=== PATIENT | female | born 1990 | race Caucasian/White ===

== ENCOUNTER 2019-12-16 08:00 | Inpatient (IN) | payer BC ==
[2019-12-16] MEDS ORDERED: Sodium Chloride 0.9% 10 ML Syringe FLUSH PRN (19:29)
[2019-12-16] MEDS ORDERED: Nalbuphine 10 MG/ML Syringe IVPUSH PRN (19:29)
[2019-12-16] MEDS ORDERED: Ondansetron 4 MG/2 ML SDV IVPUSH PRN (19:29)
[2019-12-16] MEDS ORDERED: Calcium Carbonate 500 MG Tab.Chew PO PRN (19:29)
[2019-12-16] MEDS ORDERED: Acetaminophen 325 MG Tab PO PRN (19:29)
[2019-12-16] MEDS ORDERED: Oxytocin/Lactated Ringers 10 UNIT/1,000 ML BAG IV SCH ×2 (19:30)
[2019-12-16] MEDS ORDERED: Misoprostol 25 MCG (1/4 of 100 MCG) Tab VAG ONE (19:42)
--- NOTE | 2019-12-16 20:02 | PCM.LDHP ---
<Violeta Lvoing R - Last Filed: 12/16/19 20:17> L&D History of Present Illness - General Date of Service: 12/16/19 Admit Problem/Dx: Patient Status Order with Admit Dx/Problem 12/16/19 19:29 Patient Status [ADT] Routine Admission Diagnosis/Problem Admission Diagnosis/Problem Source of Information: Patient History Limitations: Reports: No Limitations - History of Present Illness Introduction:: Urvashi is a 28-year-old white female at 40-2/7 weeks' gestational age with an NANCY of 12/14/2019 who is admitted to labor and delivery for induction of labor on the evening of 12/16/2019. Upon examination, her cervix is closed, 60% effaced, posterior, and soft. Baby is in vertex position. She will receive Cytotec for induction per protocol. heart rate tracings show moderate variability with good accelerations and no decelerations. She is not currently experiencing any contractions. 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 Menarche began at age 12. Cycles have been regular prior to conception, lasting 28 days on average. She was not using control at the time of conception. LMP was 03/03/2019. supported by early ultrasound at 10 -3/7 weeks' gestational age on 05/21/2019 course: Patient began care at 10-3/7 weeks' gestational age. Patient's weight gain during was 140.0 pounds to 172.2 pounds for a total gain of 32.2 pounds. Her fundal height has been consistent with gestational age throughout the course of . Early ultrasound showed possible cleft lip, but most recent ultrasound performed on 08/25/2019 showed no cleft lip. Baby was measuring in the 45th percentile for growth. No risks factors for were identified. Laboratory results: Blood type is O negative with negative antibody screen. Initial labs showed a hemoglobin of 15.7 g/dL and platelets of 162,000. RPR was nonreactive. Rubella immune. Gonorrhea and chlamydia were negative. HIV and hepatitis B surface antigen were negative. Her urine culture was negative. Her second trimester labs revealed a hemoglobin of 14.2 g/dL and platelets of 170,000. Her group B strep screen was negative. Past medical history: none Past surgical history: none Allergies: No known drug allergies Current medications: 1. vitamin PO daily Social history: Urvashi is . Her is Eusebio Ash. They live in [place], [place]. 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 She has some college education. No history of tobacco, alcohol, or illicit substance use during . Family history: Mother is alive and well. Father is alive and has a history of hepatitis C. She has 1 sister and 1 brother who are both in good health. Her maternal grandmother is alive and has a history of tobacco use with some residual lung issues. Her maternal grandfather is alive and well. Her paternal grandmother in a car accident. Her paternal grandfather in a jacqui accident. No health conditions known about them prior to their deaths. No family history of bleeding or clotting disorders, anesthesia-related problems, or breast or ovarian cancer. No history of -related problems. - Related Data Allergies/Adverse Reactions: Allergies Allergy/AdvReac Type Severity Reaction Status Date / Time No Known Allergies Allergy Verified 12/16/19 19:29 Past Medical History - Past Health History Medical/Surgical History: Denies Medical/Surgical History H&P Review of Systems - Review of Systems: Review Of Systems: Comprehensive ROS is negative, except as noted in HPI. L&D Exam - Vital Signs Weight: 78.154 kg - OB Specific Movement: Active Heart Tones: Present Heart Rate (FHR) Variability: Moderate (6-25 bmp) Presentation: Vertex - Silva Score Silva Score Cervix Position: Posterior Silva Score Consistency: Soft Silva Score Effacement: 51-70% Silva Score Dilation: Closed Silva Score Infant's Station: -3 Silva Score Total: 4 - Exam General: Alert, Oriented HEENT: Conjunctiva Clear, EOMI, Mucosa Moist & [place], Posterior Pharynx Clear Neck: Supple, Trachea Midline Lungs: Clear to Auscultation, Normal Respiratory Effort Cardiovascular: Regular Rate, Regular Rhythm GI/Abdominal Exam: Normal Bowel Sounds, Other (normal gravid abdomen) Back Exam: Normal Inspection Extremities: Normal Inspection, No Pedal Edema, Normal Capillary Refill Skin: Warm, Dry, Intact Orders Last 24hrs: Active Orders 24 hr Category Date Time Status Patient Status [ADT] Routine ADT 12/16/19 19:29 Active Activity as Tolerated [RC] PFP Care 12/16/19 19:29 Active Communication Order [RC] ASDIRECTED Care 12/16/19 19:29 Active Heart Tones [RC] ASDIRECTED Care 12/16/19 19:30 Active Non Stress Test [RC] PER UNIT ROUTINE Care 12/16/19 19:29 Active Notify Provider [RC] PFP Care 12/16/19 19:29 Active Notify Provider [RC] PRN Care 12/16/19 19:29 Active Peripheral IV Care [RC] . DIRECTED Care 12/16/19 19:30 Active Vital Signs [RC] PER UNIT ROUTINE Care 12/16/19 19:29 Active Regular Diet [DIET] Diet 12/17/19 Breakfast Active CBC WITH AUTO DIFF [HEME] Stat Lab 12/16/19 19:29 Ordered CORONAVIRUS COVID-19 PCR PHL Stat Lab 12/16/19 19:34 Ordered RAPID PLASMA REAGIN,RPR [CHEM] Routine Lab 12/16/19 19:29 Ordered TYPE AND SCREEN [BBK] Stat Lab 12/16/19 19:29 Ordered Acetaminophen [Tylenol] Med 12/16/19 19:29 Active 650 mg PO Q4H PRN Calcium Carbonate [Tums] Med 12/16/19 19:29 Active 1,000 mg PO Q2H PRN Lactated Ringers [Ringers, Lactated] 1,000 ml Med 12/16/19 19:30 Active IV ASDIRECTED Nalbuphine [Nubain] Med 12/16/19 19:29 Active 10 mg IVPUSH Q2H PRN Ondansetron [Zofran] Med 12/16/19 19:29 Active 4 mg IVPUSH Q4H PRN Oxytocin/Lactated Ringers [Pitocin in LR 10 Units/1,000 Med 12/16/19 19:30 Active ML] 10 unit in 1,000 ml IV .CONTINUOUS Oxytocin/Lactated Ringers [Pitocin in LR 10 Units/1,000 Med 12/16/19 19:30 Active ML] 10 unit in 1,000 ml IV TITRATE Sodium Chloride 0.9% [Saline Flush] Med 12/16/19 19:29 Active 10 ml FLUSH ASDIRECTED PRN Electronic Heart Tones Ext w TOCO [WOMSER] Oth 12/16/19 19:29 Ordered Routine Electronic Heart Tones Internal [WOMSER] Per Unit Oth 12/16/19 19:29 Ordered Routine Peripheral IV Insertion Adult [OM.PC] Routine Oth 12/16/19 19:29 Ordered Resuscitation Status Routine Resus Stat 12/16/19 19:29 Ordered Medication Orders Acetaminophen (Tylenol) 650 mg PO Q4H PRN PRN Reason: Pain (Mild 1-3) and fever Calcium Carbonate/Glycine (Tums) 1,000 mg PO Q2H PRN PRN Reason: Indigestion Oxytocin/Lactated Ringer's (Pitocin In Lr 10 Units/1,000 Ml) 10 unit in 1,000 mls @ 500 mls/hr IV .CONTINUOUS JUAN J Oxytocin/Lactated Ringer's (Pitocin In Lr 10 Units/1,000 Ml) 10 unit in 1,000 mls @ 12 mls/hr IV TITRATE JUAN J; Protocol Lactated Ringer's (Ringers, Lactated) 1,000 mls @ 100 mls/hr IV ASDIRECTED JUAN J Nalbuphine HCl (Nubain) 10 mg IVPUSH Q2H PRN PRN Reason: Pain Ondansetron HCl (Zofran) 4 mg IVPUSH Q4H PRN PRN Reason: Nausea/Vomiting Sodium Chloride (Saline Flush) 10 ml FLUSH ASDIRECTED PRN PRN Reason: Keep Vein Open Assessment/Plan Comment:: Assessment: 1. 28-year-old female at 40-2/7 weeks gestational age with an NANCY of 12/14/2019 admitted for induction of labor. 2. No risk factors identified for this . 3. GBS negative. 4. Rubella immune. 5. RPR nonreactive. 6. Patient is considering an epidural as labor progresses. Plan: 1. Induction with Cytotec. 2. Regular diet. 3. Epidural if patient so chooses. 4. Routine labor care. 5. RPR and CBC upon admission. 6. Anticipate normal spontaneous vaginal delivery. <Mauro Briones - Last Filed: 12/17/19 06:00> L&D History of Present Illness - General Admit Problem/Dx: Patient Status Order with Admit Dx/Problem 12/16/19 19:29 Patient Status [ADT] Routine Admission Diagnosis/Problem Admission Diagnosis/Problem H&P Review of Systems - Review of Systems: Review Of Systems: See Below L&D Exam - Exam Exam: See Below - Vital Signs Vital Signs: Last Vital Signs Temp 36.7 C 12/16/19 19:29 Pulse 67 12/16/19 19:29 Resp 16 12/16/19 19:29 BP 126/75 12/16/19 19:29 Pulse Ox 100 12/16/19 19:29 - Patient Data Lab Results Last 24 hrs: Laboratory Results - last 24 hr 12/16/19 12/16/19 12/16/19 Range/Units 20:02 20:03 20:03 WBC 9.75 (3.98-10.04) K/mm3 RBC 4.42 (3.98-5.22) M/mm3 Hgb 13.6 (11.2-15.7) gm/dl Hct 40.2 (34.1-44.9) % MCV 91.0 (79.4-94.8) fl MCH 30.8 (25.6-32.2) pg MCHC 33.8 (32.2-35.5) g/dl RDW Std Deviation 43.3 (36.4-46.3) fL Plt Count 232 (182-369) K/mm3 MPV 11.1 (9.4-12.3) fl Neut % (Auto) 70.2 (34.0-71.1) % Lymph % (Auto) 19.4 (19.3-51.7) % [place] % (Auto) 9.2 (4.7-12.5) % Eos % (Auto) 0.8 (0.7-5.8) Baso % (Auto) 0.3 (0.1-1.2) % Neut # (Auto) 6.84 H (1.56-6.13) K/mm3 Lymph # (Auto) 1.89 (1.18-3.74) K/mm3 [place] # (Auto) 0.90 H (0.24-0.36) K/mm3 Eos # (Auto) 0.08 (0.04-0.36) K/mm3 Baso # (Auto) 0.03 (0.01-0.08) K/mm3 COVID-19 (ELIGIO) Negative (NEGATIVE) Blood Type O NEGATIVE Gel Antibody Screen Negative Result Diagrams: 12/16/19 20:03 Problem List Initiated/Reviewed/Updated: Yes Orders Last 24hrs: Active Orders 24 hr Category Date Time Status Patient Status [ADT] Routine ADT 12/16/19 19:29 Active Activity as Tolerated [RC] PFP Care 12/16/19 19:29 Active Communication Order [RC] ASDIRECTED Care 12/16/19 19:29 Active Heart Tones [RC] ASDIRECTED Care 12/16/19 19:30 Active Notify Provider [RC] PFP Care 12/16/19 19:29 Active Notify Provider [RC] PRN Care 12/16/19 19:29 Active Peripheral IV Care [RC] . DIRECTED Care 12/16/19 19:30 Active Vital Signs [RC] PER UNIT ROUTINE Care 12/16/19 19:29 Active Regular Diet [DIET] Diet 12/17/19 Breakfast Active RAPID PLASMA REAGIN,RPR [CHEM] Routine Lab 12/16/19 19:29 Ordered Acetaminophen [Tylenol] Med 12/16/19 19:29 Active 650 mg PO Q4H PRN Calcium Carbonate [Tums] Med 12/16/19 19:29 Active 1,000 mg PO Q2H PRN Lactated Ringers [Ringers, Lactated] 1,000 ml Med 12/16/19 19:30 Active IV ASDIRECTED Nalbuphine [Nubain] Med 12/16/19 19:29 Active 10 mg IVPUSH Q2H PRN Ondansetron [Zofran] Med 12/16/19 19:29 Active 4 mg IVPUSH Q4H PRN Oxytocin/Lactated Ringers [Pitocin in LR 10 Units/1,000 Med 12/16/19 19:30 Active ML] 10 unit in 1,000 ml IV .CONTINUOUS Oxytocin/Lactated Ringers [Pitocin in LR 10 Units/1,000 Med 12/16/19 19:30 Active ML] 10 unit in 1,000 ml IV TITRATE Sodium Chloride 0.9% [Saline Flush] Med 12/16/19 19:29 Active 10 ml FLUSH ASDIRECTED PRN miSOPROStoL [Cytotec] Med 12/17/19 00:00 Active 50 mcg VAG Q4HR PRN Electronic Heart Tones Ext w TOCO [WOMSER] Oth 12/16/19 19:29 Ordered Routine Electronic Heart Tones Internal [WOMSER] Per Unit Oth 12/16/19 19:29 Ordered Routine Peripheral IV Insertion Adult [OM.PC] Routine Oth 12/16/19 19:29 Ordered Resuscitation Status Routine Resus Stat 12/16/19 19:29 Ordered Medication Orders Acetaminophen (Tylenol) 650 mg PO Q4H PRN PRN Reason: Pain (Mild 1-3) and fever Calcium Carbonate/Glycine (Tums) 1,000 mg PO Q2H PRN PRN Reason: Indigestion Oxytocin/Lactated Ringer's (Pitocin In Lr 10 Units/1,000 Ml) 10 unit in 1,000 mls @ 500 mls/hr IV .CONTINUOUS JUAN J Oxytocin/Lactated Ringer's (Pitocin In Lr 10 Units/1,000 Ml) 10 unit in 1,000 mls @ 12 mls/hr IV TITRATE JUAN J; Protocol Lactated Ringer's (Ringers, Lactated) 1,000 mls @ 100 mls/hr IV ASDIRECTED JUAN J Misoprostol (Cytotec) 50 mcg VAG Q4HR PRN PRN Reason: Other Last Admin: 12/17/19 04:10 Dose: 50 mcg Documented by: Admin: 12/17/19 00:08 Dose: 50 mcg Documented by: DEBORA Nalbuphine HCl (Nubain) 10 mg IVPUSH Q2H PRN PRN Reason: Pain Ondansetron HCl (Zofran) 4 mg IVPUSH Q4H PRN PRN Reason: Nausea/Vomiting Sodium Chloride (Saline Flush) 10 ml FLUSH ASDIRECTED PRN PRN Reason: Keep Vein Open
[2019-12-17] MEDS: Misoprostol 25 MCG (1/4 of 100 MCG) Tab VAG PRN ×2 (00:08→04:10)
[2019-12-17] MEDS: Lactated Ringers 1,000 ML IV SCH ×5 (07:32→22:55)
[2019-12-17] MEDS ORDERED: Ondansetron 4 MG/2 ML SDV IVPUSH PRN (08:37)
[2019-12-17] MEDS ORDERED: fentaNYL 100 MCG/2 ML SDV EPIDUR PRN (08:37)
[2019-12-17] MEDS ORDERED: ePHEDrine 50 MG/ML SDV IVPUSH PRN (08:37)
--- NOTE | 2019-12-17 08:40 | PCM.PREANE ---
Preanesthetic Assessment - Anesthesia/Transfusion/Family Hx Anesthesia History: Prior Anesthesia Without Reaction Family History of Anesthesia Reaction: No Transfusion History: No Prior Transfusion(s) Intubation History: Unknown - Review of Systems General: No Symptoms Pulmonary: No Symptoms Cardiovascular: No Symptoms Gastrointestinal: No Symptoms (GERD) Neurological: No Symptoms Other: Reports: None, Easy Bruising - Physical Assessment NPO Status Date: 12/17/19 NPO Status Time: 08:50 Vital Signs: Last Vital Signs Temp 36.7 C 12/16/19 19:29 Pulse 67 12/16/19 19:29 Resp 16 12/16/19 19:29 BP 126/75 12/16/19 19:29 Pulse Ox 100 12/16/19 19:29 Height: 1.63 m Weight: 78.154 kg ASA Class: 2 Mental Status: Alert & Oriented x3 Airway Class: Mallampati = 2 Dentition: Reports: Normal Dentition, Caries Thyro-Mental Finger Breadths: 3 Mouth Opening Finger Breadths: 3 ROM/Head Extension: Full Lungs: Clear to Auscultation, Normal Respiratory Effort Cardiovascular: Regular Rate, Regular Rhythm, No Murmurs - Lab Values: Laboratory Last Values WBC 9.75 K/mm3 (3.98-10.04) 12/16/19 20:03 RBC 4.42 M/mm3 (3.98-5.22) 12/16/19 20:03 Hgb 13.6 gm/dl (11.2-15.7) 12/16/19 20:03 Hct 40.2 % (34.1-44.9) 12/16/19 20:03 MCV 91.0 fl (79.4-94.8) 12/16/19 20:03 MCH 30.8 pg (25.6-32.2) 12/16/19 20:03 MCHC 33.8 g/dl (32.2-35.5) 12/16/19 20:03 RDW Std Deviation 43.3 fL (36.4-46.3) 12/16/19 20:03 Plt Count 232 K/mm3 (182-369) 12/16/19 20:03 MPV 11.1 fl (9.4-12.3) 12/16/19 20:03 Neut % (Auto) 70.2 % (34.0-71.1) 12/16/19 20:03 Lymph % (Auto) 19.4 % (19.3-51.7) 12/16/19 20:03 [place] % (Auto) 9.2 % (4.7-12.5) 12/16/19 20:03 Eos % (Auto) 0.8 (0.7-5.8) 12/16/19 20:03 Baso % (Auto) 0.3 % (0.1-1.2) 12/16/19 20:03 Neut # (Auto) 6.84 K/mm3 (1.56-6.13) H 12/16/19 20:03 Lymph # (Auto) 1.89 K/mm3 (1.18-3.74) 12/16/19 20:03 [place] # (Auto) 0.90 K/mm3 (0.24-0.36) H 12/16/19 20:03 Eos # (Auto) 0.08 K/mm3 (0.04-0.36) 12/16/19 20:03 Baso # (Auto) 0.03 K/mm3 (0.01-0.08) 12/16/19 20:03 COVID-19 (ELIGIO) Negative (NEGATIVE) 12/16/19 20:02 Blood Type O NEGATIVE 12/16/19 20:03 Gel Antibody Screen Negative 12/16/19 20:03 Above labs reviewed and noted and within acceptable ranges to proceed with epidural if desired. 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 USE Smoking Status *Q: Never Smoker Second Hand Smoke Exposure: No Recreational Drug Use History: No - CURRENT (IN HOUSE) MEDS Current Meds: Current Medications Acetaminophen (Tylenol) 650 mg PO Q4H PRN PRN Reason: Pain (Mild 1-3) and fever Calcium Carbonate/Glycine (Tums) 1,000 mg PO Q2H PRN PRN Reason: Indigestion Ephedrine Sulfate (Ephedrine Sulfate) 5 mg IVPUSH ASDIRECTED PRN PRN Reason: Hypotension Fentanyl (Sublimaze) 100 mcg EPIDUR Q3H PRN PRN Reason: Pain Fentanyl/Bupivacaine HCl (Fentanyl/Bupivacaine/Ns 2 Mcg-0.125% 100 Ml) 100 ml EPIDUR ASDIRECTED JUAN J Oxytocin/Lactated Ringer's (Pitocin In Lr 10 Units/1,000 Ml) 10 unit in 1,000 mls @ 500 mls/hr IV .CONTINUOUS JUAN J Oxytocin/Lactated Ringer's (Pitocin In Lr 10 Units/1,000 Ml) 10 unit in 1,000 mls @ 12 mls/hr IV TITRATE JUAN J; Protocol Last Titration: 12/17/19 08:15 Dose: 6 munits/min, 36 mls/hr Documented by: Lactated Ringer's (Ringers, Lactated) 1,000 mls @ 100 mls/hr IV ASDIRECTED JUAN J Last Admin: 12/17/19 07:32 Dose: 100 mls/hr Documented by: Phenylephrine HCl 1 mg/ Sodium (Chloride) 10.1 mls @ 1 mls/sec IV TITRATE JUAN J; Protocol Misoprostol (Cytotec) 50 mcg VAG Q4HR PRN PRN Reason: Other Last Admin: 12/17/19 04:10 Dose: 50 mcg Documented by: Nalbuphine HCl (Nubain) 10 mg IVPUSH Q2H PRN PRN Reason: Pain Ondansetron HCl (Zofran) 4 mg IVPUSH Q4H PRN PRN Reason: Nausea/Vomiting Ondansetron HCl (Zofran) 4 mg IVPUSH ONETIME PRN PRN Reason: Nausea/Vomiting Sodium Chloride (Saline Flush) 10 ml FLUSH ASDIRECTED PRN PRN Reason: Keep Vein Open Discontinued Medications Misoprostol (Cytotec) 25 mcg VAG ONETIME ONE Stop: 12/16/19 19:43 Last Admin: 12/16/19 19:53 Dose: 25 mcg Documented by:
[2019-12-17] MEDS ORDERED: Phenylephrine 1 MG in Sodium Chloride 0.9% 10 ML IV SCH (08:45)
[2019-12-17] MEDS ORDERED: Bupivacaine/fentaNYL/NS 100 ML Bag EPIDUR SCH (08:45)
[2019-12-17] MEDS: Oxytocin/Lactated Ringers 20 UNIT/1,000 ML BAG IV SCH (12:58)
--- NOTE | 2019-12-17 22:03 | PCM.SN.2 ---
- Free Text/Narrative Note: Progress note: Urvashi when Cytotec cervical ripening throughout the night starting on the evening of 03/17/2020 through the a.m. on 12/17/2019. She had 3 doses of Cytotec. Attempt was made to place a balloon catheter to facilitate mechanical cervical dilation. This was unsuccessful at approximately 0700 hrs. Patient started on Pitocin and with Pitocin induction she did achieve a 1 cm cervical dilation which wasn't enough to allow for Oh bulb placement. 30 mL of fluid was placed in the bulb. She was continued on Pitocin induction and at approximately 2000 hrs. she dilated to 4 cm and the Oh bulb fell into the vagina. At that time artificial rupture member is undertaken with resultant clear amniotic fluid. She underwent a laboring epidural with good results. Early in the course of labor spell presentation was confirmed with ultrasound at bedside. heart tones have been generally reactive with good variability and accelerations. For short period time heart rate was around 110 but no significant decelerations were noted. The change in baseline occurred just shortly after patient received Nubain analgesia. Intrauterine pressure catheter was placed at approximately 2200 hrs. on 12/17/2019. Contractions appear to be adequate. heart tones were reassuring. Assessment: 1. 40-3/7 week intrauterine , induction of labor. Initial evaluation cervix at the time of cervical ripening was closed, -3 station, cephalic presentation. No major slow progress with good labor pattern. heart tones reassuring. Plan: 1. Epidural analgesia she'll outpatient rest. 2. Continue Pitocin at a rate adequate to produce good labor pattern. 3. Monitor heart tones closely.
[2019-12-17] MEDS ORDERED: diphenhydrAMINE 50 MG/ML SDV IVPUSH PRN (22:49)
[2019-12-18] MEDS: Oxytocin/Lactated Ringers 20 UNIT/1,000 ML BAG IV SCH (02:20)
--- NOTE | 2019-12-18 06:23 | PCM.SN.2 ---
- Free Text/Narrative Note: Urvashi has continued on pitocin over night with IUPC evaluated ctx that are adequate in frequency, length and intensity. FHTs generally have been reassuring. Her cx this AM is 4/90/-3/mid/soft with baby in a cephalic presentation. Patient has been felt to have a borderline size pelvis as is documented in the PN chart. I have recommended that we proceed with a primary CS. The risks, benefits, alternatives of care and follow up are discussed with the patient and her . They appear to understand and wish to proceed. Consent is signed.
[2019-12-18] MEDS ORDERED: Metoclopramide 10 MG/2 ML SDV IVPUSH ONE (06:25)
[2019-12-18] MEDS ORDERED: Bupivacaine 0.5% 10 ML SDV ONE (06:25)
[2019-12-18] MEDS ORDERED: Citric Acid/Sodium Citrate Solution 30 ML Cup PO ONE (06:25)
[2019-12-18] MEDS ORDERED: Bupivacaine 0.5% 30 ML SDV ONE (06:26)
[2019-12-18] MEDS ORDERED: Citric Acid/Sodium Citrate Solution 30 ML Cup ONE (06:28)
[2019-12-18] MEDS ORDERED: Metoclopramide 10 MG/2 ML SDV ONE (06:28)
[2019-12-18] MEDS: Lactated Ringers 1,000 ML IV SCH (06:35)
[2019-12-18] MEDS ORDERED: Azithromycin 500 MG in Sodium Chloride 0.9% 250 ML IV ONE (07:27)
[2019-12-18] MEDS ORDERED: ceFAZolin 1 GM Vial ONE (07:47)
[2019-12-18] MEDS ORDERED: Lactated Ringers 1,000 ML ONE (07:51)
[2019-12-18] MEDS ORDERED: Oxytocin 10 Units/1 ML SDV ONE (07:58)
[2019-12-18] MEDS ORDERED: Morphine PF 1 MG/ML Amp ONE (07:59)
[2019-12-18] MEDS ORDERED: Meperidine 50 MG/ML Vial ONE (08:09)
[2019-12-18] MEDS ORDERED: Ketorolac 30 MG/ML SDV ONE (08:25)
--- NOTE | 2019-12-18 08:49 | PCM.OPNOTE ---
- General Post-Op/Procedure Note Date of Surgery/Procedure: 12/18/19 Operative Procedure(s): Primary lower uterine segment transverse section through Pfannenstiel skin incision Findings: Uterus, tubes and ovaries consistent with term . Baby in vertex presentation. Amniotic fluid was clear. Cervix was dilated to approximately 3-4 cm. There was a tight nuchal cord 1 reduced over the baby's head at the time of delivery. Pre Op Diagnosis: 1. 40-4/7 week intrauterine . 2. Failure to progress secondary to cephalopelvic disproportion Post-Op Diagnosis: Same with delivery of a viable, 3430 g (7 lbs. 9 oz.) (male infant with Apgars of 9 and 9 and a length of 19.5 inches delivered at 0800 hrs. on 12/18/2019 by primary section done for failure to progress secondary to cephalopelvic disproportion. Anesthesia Technique: Epidural Other Anesthesia Type: Marcaine 0.5%20 mLlocal Primary Surgeon: Mauro Briones Secondary Surgeon: Shoshana Smith Anesthesia Provider: Leo Hancock Order Processing Manager: Violeta Loving Reason Order Processing Manager Was Necessary: Retraction, assistance, patient safety, quality of care. Fluid Replacement, Intraop: 2,000 Output, Urine Amount: 100 EBL in mLs: 500 Drain/Tube Comments:: Indwelling bladder catheter Complications: None Condition: Good Free Text/Narrative:: Surgery duration: 35 minutes\ Surgery duration: Procedure: The patient is appropriately consented. Patient was transferred to the room and placed in a sitting position. Spinal anesthesia was administered. After confirmation of adequate anesthesia patient was placed in a supine position with a wedge under her right side to facilitate left lateral positioning. The patient was prepped and draped in usual fashion after Oh catheter was already placed . The anesthetic was checked and found to be adequate. 20 mL of Marcaine 0.5% was injected locally in the Pfannenstiel incision site. The Pfannenstiel skin incision was then made and carried down through skin, subcutaneous and fascial layers. The fascia was then undermined superiorly and inferiorly to allow for adequate operating room. The recti muscles midline and preperitoneal fat was bluntly dissected. Peritoneal cavity was entered longitudinally. The vesicouterine peritoneum was then incised transversely and bladder flap was developed. Myometrium was incised transversely to the level of the amniotic sac. This incision was extended bilaterally in a blunt fashion. The amniotic sac was then ruptured resulting in clear amniotic fluid. A hand is placed in the low uterine segment and the baby's head was brought forth through the incision. The baby was completely delivered using fundal pressure in a routine fashion. The nose and mouth were bulb suctioned. Baby's cord was clamped x2 cut and baby was handed off to attending die maker stamping Dr Cheema. Placenta was expressed after cord blood was obtained. Uterus was then exteriorized to allow for easier closure. The cervix was assessed and found to be dilated adequately to allow egress of blood. The uterus was closed in 2 layers. The first layer a running locked suture of 0 Monocryl, the second layer a running locked vertical mattress suture of 0 Monocryl. Hemostasis confirmed at this time. Sponge instrument needle counts are correct. The uterus was returned to the abdominal cavity and lateral gutters were cleared of blood. Once again sponge needle counts are correct. The anterior abdominal wall was closed with a #1 PDS suture from angle to angle. The subcutaneous area was found to be free of any bleeders. 3 interrupted sutures of 3-0 Monocryl were used to reapproximate the subcutaneous layer.Skin was closed with a running subcuticular stitch of 3-0 Monocryl in a vertical mattress suture fashion using a Vinicio needle. Prineo mesh/glue was then applied to further approximate the incision. It should be noted that patient received 2 g of Ancef and 500 mg of azithromycin preoperatively for infection prophylaxis and had Pitocin infused after delivery of the placenta to facilitate uterine contraction. She also had sequential compression stockings in place for DVT prophylaxis. Patient was discharged from the operating room in satisfactory condition.
[2019-12-18] MEDS ORDERED: diphenhydrAMINE 50 MG/ML SDV IVPUSH PRN ×2 (08:53→10:17)
[2019-12-18] MEDS ORDERED: fentaNYL 100 MCG/2 ML SDV IVPUSH PRN (08:53)
[2019-12-18] MEDS ORDERED: Ondansetron 4 MG/2 ML SDV IVPUSH PRN (08:53)
--- NOTE | 2019-12-18 08:53 | PCM.POSTAN ---
POST ANESTHESIA ASSESSMENT - MENTAL STATUS Mental Status: Alert, Oriented - VITAL SIGNS Vital Signs: Last Vital Signs Temp 98.9 F 12/18/19 08:50 Pulse 74 12/18/19 08:50 Resp 23 H 12/18/19 08:50 BP 110/58 L 12/18/19 08:50 Pulse Ox 97 12/18/19 08:50 - RESPIRATORY Respiratory Status: Respiratory Rate WNL, Airway Patent, O2 Saturation Stable - CARDIOVASCULAR CV Status: Pulse Rate WNL, Blood Pressure Stable - GASTROINTESTINAL GI Status: No Symptoms - PAIN Pain Score: 0 (post epidural) - POST OP HYDRATION Hydration Status: Adequate & Stable
[2019-12-18] MEDS ORDERED: Acetaminophen/oxyCODONE 325-5 MG Tab PO PRN ×2 (10:17)
[2019-12-18] MEDS ORDERED: Ondansetron 4 MG/2 ML SDV IV PRN (10:17)
[2019-12-18] MEDS ORDERED: ePHEDrine 50 MG/ML SDV IVPUSH PRN (10:17)
[2019-12-18] MEDS ORDERED: Dextrose 5%-Lactated Ringers 1,000 ML IV SCH (10:17)
[2019-12-18] MEDS ORDERED: Naloxone 0.4 MG/ML SDV IVPUSH PRN (10:17)
--- NOTE | 2019-12-18 10:57 | PCM48HPAN ---
Post Anesthesia Note - EVALUATION WITHIN 48HRS OF ANESTHETIC Vital Signs in Normal Range: Yes Patient Participated in Evaluation: Yes Respiratory Function Stable: Yes Airway Patent: Yes Cardiovascular Function Stable: Yes Hydration Status Stable: Yes Pain Control Satisfactory: Yes Nausea and Vomiting Control Satisfactory: Yes Mental Status Recovered: Yes Vital Signs: Last Vital Signs Temp 99.2 F 12/18/19 09:30 Pulse 74 12/18/19 09:30 Resp 22 H 12/18/19 09:30 BP 112/67 12/18/19 09:30 Pulse Ox 97 12/18/19 09:30 - COMMENTS/OBSERVATIONS Free Text/Narrative:: IN bed nursing. NO complaints
[2019-12-18] MEDS: Docusate Sodium 100 MG Cap PO PRN (20:36)
[2019-12-18] MEDS: Ibuprofen 800 MG Tab PO SCH (20:37)
[2019-12-18] MEDS: Simethicone 80 MG Tab.Chew PO SCH (22:00)
[2019-12-19] MEDS ORDERED: Bupivacaine 0.25% 10 ML SDV ONE
[2019-12-19] MEDS ORDERED: Lidocaine 2% 20 ML MDV ONE
--- NOTE | 2019-12-19 00:06 | PCM.PNPP ---
- General Info Date of Service: 12/19/19 Functional Status: Reports: Pain Controlled, Tolerating Diet, Ambulating, Urinating - Review of Systems General: Reports: No Symptoms Pulmonary: Reports: No Symptoms Cardiovascular: Reports: No Symptoms Gastrointestinal: Reports: Abdominal Pain (managed well) Genitourinary: Reports: No Symptoms Musculoskeletal: Reports: No Symptoms Neurological: Reports: No Symptoms - General Info Date of Service: 12/19/19 - Patient Data Vital Signs - Most Recent: Last Vital Signs Temp 37.1 C 12/18/19 16:00 Pulse 84 12/18/19 16:38 Resp 16 12/18/19 18:00 BP 130/76 12/18/19 16:38 Pulse Ox 97 12/18/19 18:00 Weight - Most Recent: 78.154 kg I&O - Last 24 Hours: Intake & Output 12/18/19 12/18/19 12/19/19 14:59 22:59 06:59 Intake Total 2200 2000 Output Total 350 950 Balance 1850 1050 Med Orders - Current: Current Medications Diphenhydramine HCl (Benadryl) 25 mg IVPUSH Q6H PRN PRN Reason: Pruritis Diphenhydramine HCl (Benadryl) 25 mg IVPUSH Q6H PRN PRN Reason: Itching or Nausea Docusate Sodium (Colace) 100 mg PO Q12H PRN PRN Reason: Constipation Last Admin: 12/18/19 20:36 Dose: 100 mg Documented by: Ephedrine Sulfate (Ephedrine Sulfate) 5 mg IVPUSH SEECOMMENT PRN PRN Reason: Other Fentanyl (Sublimaze) 50 mcg IVPUSH Q5M PRN PRN Reason: Pain Ibuprofen (Motrin) 800 mg PO Q8H JUAN J Last Admin: 12/18/19 20:37 Dose: 800 mg Documented by: Naloxone HCl (Narcan) 0.1 mg IVPUSH SEECOMMENT PRN PRN Reason: Respiratory Depression Ondansetron HCl (Zofran) 4 mg IVPUSH ONETIME PRN PRN Reason: Nausea/Vomiting Ondansetron HCl (Zofran) 4 mg IV Q4H PRN PRN Reason: Nausea/Vomiting Oxycodone/Acetaminophen (Percocet 325-5 Mg) 1 tab PO Q4H PRN PRN Reason: Pain (moderate 4-6) Oxycodone/Acetaminophen (Percocet 325-5 Mg) 2 tab PO Q4H PRN PRN Reason: Pain (severe 7-10) Prenat Multivit/[place]/Iron/Folic Ac ( Plus Iron) 1 each PO DAILY [facility] Simethicone (Simethicone) 80 mg PO 0900,1300,1800,2200 JUAN J Discontinued Medications Acetaminophen (Tylenol) 650 mg PO Q4H PRN PRN Reason: Pain (Mild 1-3) and fever Bupivacaine HCl (Sensorcaine-Mpf 0.5%) Confirm Administered Dose 0 ml .ROUTE .STK-MED ONE Stop: 12/18/19 06:26 Bupivacaine HCl (Marcaine 0.5%) Confirm Administered Dose 30 ml .ROUTE .STK-MED ONE Stop: 12/18/19 06:27 Last Admin: 12/18/19 10:30 Dose: 20 ml Documented by: Calcium Carbonate/Glycine (Tums) 1,000 mg PO Q2H PRN PRN Reason: Indigestion Cefazolin Sodium (Ancef) Confirm Administered Dose 2 gm .ROUTE .STK-MED ONE Stop: 12/18/19 07:48 Citric Acid/Sodium Citrate (Bicitra Solution) 30 ml PO ONETIME ONE Stop: 12/18/19 06:26 Last Admin: 12/18/19 06:32 Dose: 30 ml Documented by: Citric Acid/Sodium Citrate (Bicitra Solution) Confirm Administered Dose 30 ml .ROUTE .STK-MED ONE Stop: 12/18/19 06:29 Last Admin: 12/18/19 06:32 Dose: Not Given Documented by: Diphenhydramine HCl (Benadryl) 25 mg IVPUSH Q6H PRN PRN Reason: Itching Last Admin: 12/17/19 22:55 Dose: 25 mg Documented by: Ephedrine Sulfate (Ephedrine Sulfate) 5 mg IVPUSH ASDIRECTED PRN PRN Reason: Hypotension Fentanyl (Sublimaze) 100 mcg EPIDUR Q3H PRN PRN Reason: Pain Last Admin: 12/17/19 20:44 Dose: 100 mcg Documented by: Fentanyl/Bupivacaine HCl (Fentanyl/Bupivacaine/Ns 2 Mcg-0.125% 100 Ml) 100 ml EPIDUR ASDIRECTED JUAN J Last Admin: 12/17/19 20:45 Dose: 100 ml Documented by: Oxytocin/Lactated Ringer's (Pitocin In Lr 10 Units/1,000 Ml) 10 unit in 1,000 mls @ 500 mls/hr IV .CONTINUOUS JUAN J Oxytocin/Lactated Ringer's (Pitocin In Lr 10 Units/1,000 Ml) 10 unit in 1,000 mls @ 12 mls/hr IV TITRATE JUAN J; Protocol Last Titration: 12/17/19 12:00 Dose: 20 munits/min, 120 mls/hr Documented by: Lactated Ringer's (Ringers, Lactated) 1,000 mls @ 100 mls/hr IV ASDIRECTED JUAN J Last Admin: 12/18/19 06:35 Dose: 100 mls/hr Documented by: Phenylephrine HCl 1 mg/ Sodium (Chloride) 10.1 mls @ 1 mls/sec IV TITRATE JUAN J; Protocol Oxytocin/Lactated Ringer's (Pitocin In Lr 20 Units/1,000 Ml) 20 unit in 1,000 mls @ 66 mls/hr IV TITRATE JUAN J; Protocol Last Admin: 12/18/19 02:20 Dose: 66 mls/hr Documented by: Azithromycin 500 mg/ Sodium (Chloride) 250 mls @ 250 mls/hr IV ONETIME ONE Stop: 12/18/19 08:26 Last Admin: 12/18/19 08:12 Dose: Not Given Documented by: Lactated Ringer's (Ringers, Lactated) Confirm Administered Dose 1,000 mls @ as directed .ROUTE .STK-MED ONE Stop: 12/18/19 07:52 Dextrose/Lactated Ringer's (Dextrose 5%-Lactated Ringers) 1,000 mls @ 125 mls/hr IV ASDIRECTED JUAN J Stop: 12/18/19 18:16 Last Admin: 12/18/19 10:31 Dose: 125 mls/hr Documented by: Ketorolac Tromethamine (Toradol) Confirm Administered Dose 30 mg .ROUTE .STK-MED ONE Stop: 12/18/19 08:26 Meperidine HCl (Meperidine) Confirm Administered Dose 50 mg .ROUTE .STK-MED ONE Stop: 12/18/19 08:10 Metoclopramide HCl (Reglan) 10 mg IVPUSH ONETIME ONE Stop: 12/18/19 06:26 Last Admin: 12/18/19 06:32 Dose: 10 mg Documented by: Metoclopramide HCl (Reglan) Confirm Administered Dose 10 mg .ROUTE .STK-MED ONE Stop: 12/18/19 06:29 Last Admin: 12/18/19 06:33 Dose: Not Given Documented by: Miscellaneous Medication (Phenylephrine 1 Mg/10 Ml-Ns) Confirm Administered Dose 1 mg IV .STK-MED ONE Stop: 12/18/19 07:58 Misoprostol (Cytotec) 25 mcg VAG ONETIME ONE Stop: 12/16/19 19:43 Last Admin: 12/16/19 19:53 Dose: 25 mcg Documented by: Misoprostol (Cytotec) 50 mcg VAG Q4HR PRN PRN Reason: Other Last Admin: 12/17/19 04:10 Dose: 50 mcg Documented by: Morphine Sulfate (Duramorph Pf) Confirm Administered Dose 1 mg .ROUTE .STK-MED ONE Stop: 12/18/19 08:00 Nalbuphine HCl (Nubain) 10 mg IVPUSH Q2H PRN PRN Reason: Pain Last Admin: 12/17/19 15:02 Dose: 10 mg Documented by: Ondansetron HCl (Zofran) 4 mg IVPUSH Q4H PRN PRN Reason: Nausea/Vomiting Ondansetron HCl (Zofran) 4 mg IVPUSH ONETIME PRN PRN Reason: Nausea/Vomiting Oxytocin (Pitocin) Confirm Administered Dose 20 unit .ROUTE .STK-MED ONE Stop: 12/18/19 07:59 Sodium Chloride (Saline Flush) 10 ml FLUSH ASDIRECTED PRN PRN Reason: Keep Vein Open - Infant Interaction Infant Disposition, : in Room with Family Interaction: Holding Infant Infant Feeding: Attempted ; Nursed Fair/Poor Support Person: - Recovery Exam Fundal Tone: Firm Fundal Level: At Umbilicus Fundal Placement: Midline Lochia Amount: Small Lochia Color: Rubra/Red Perineum Description: Intact, Minimal Bruising/Swelling Episiotomy/Laceration: Not Approximated Urinary Elimination: Voided - Exam General: Alert, Oriented, Cooperative GI/Abdominal Exam: Soft, Non-Tender Extremities: Normal Inspection Skin: Warm, Dry, Intact - Problem List & Annotations (1) Failure to progress in first stage of labor SNOMED Code(s): 495800237 Code(s): ONK1098 - Status: Acute Current Visit: Yes (2) S/P primary low transverse SNOMED Code(s): 637877465, 58908420, 463984787, 884335424, 739079212 Code(s): Z98.891 - HISTORY OF UTERINE SCAR FROM PREVIOUS SURGERY Status: Acute Current Visit: Yes - Problem List Review Problem List Initiated/Reviewed/Updated: Yes - Assessment Assessment:: PPD#0 - Plan Plan:: * Routine cares * Breast feeding * Baby Rh negative, no need for Rhogam * Discharge home in 1-2 days
[2019-12-19] MEDS: Prenatal Multivitamin with Calcium/Folic Acid/Iron Tab PO SCH ×2 (01:59→15:10)
[2019-12-19] MEDS: Simethicone 80 MG Tab.Chew PO SCH ×3 (02:00→12:30)
[2019-12-19] MEDS: Ibuprofen 800 MG Tab PO SCH ×3 (02:04→23:45)
[2019-12-19] MEDS ORDERED: Ibuprofen 800 MG Tab PO SCH (06:00)
[2019-12-19] MEDS: Docusate Sodium 100 MG Cap PO PRN (17:52)
[2019-12-20] MEDS: Simethicone 80 MG Tab.Chew PO SCH ×4 (06:56→10:24)
--- NOTE | 2019-12-20 07:37 | PCM.DCSUM1 ---
Discharge Summary - Discharge Data Discharge Date: 12/20/19 Discharge Disposition: Home, Self-Care 01 Condition: Good - Referral to Home Health Primary Care Physician: Mauro Briones MD - Discharge Diagnosis/Problem(s) (1) Failure to progress in first stage of labor SNOMED Code(s): 187712181 ICD Code: [id number] - Status: Acute Current Visit: Yes (2) S/P primary low transverse SNOMED Code(s): 542591426, 82500160, 420128647, 289114271, 588366819 ICD Code: Z98.891 - HISTORY OF UTERINE SCAR FROM PREVIOUS SURGERY Status: Acute Current Visit: Yes - Patient Summary/Data Operative Procedure(s) Performed: Primary lower uterine segment transverse section through Pfannenstiel skin incision Complications: None Consults: None Recommended Follow-up Testing/Procedures: Follow up in 2 weeks Hospital Course: 28 y/o at 40 2/7 wks presented for IOL. Done with cytotec, vega bulb, pitocin/AROM. Unfortunately not able to progress in 1st stage. Taken to [facility]. Surgery was uncomplicated. See operative note. did well and was discharged home on PPD#2 - Patient Instructions Diet: Regular Diet as Tolerated Activity: No Lifting Over 10 Pounds Activity, Other: Pelvic rset for 6 weeks Driving: Do Not Drive (while taking narcotics ) Showering/Bathing: May Shower, No Tub Bathing/Swimming Wound/Incision Care: Keep Operative Site/Wound Site Clean and Dry Notify Provider of: Fever, Increased Pain, Swelling and Redness, Drainage, Nausea and/or Vomiting - Discharge Plan *PRESCRIPTION DRUG MONITORING PROGRAM REVIEWED*: No *COPY OF PRESCRIPTION DRUG MONITORING REPORT IN PATIENT EDUARDO: No Prescriptions/Med Rec: Acetaminophen/oxyCODONE [Percocet 325-5 MG] 1 - 2 tab PO Q4H PRN #25 tablet PRN Reason: Pain (Severe 7-10) Home Medications: Home Meds Acetaminophen/oxyCODONE [Percocet 325-5 MG] 1 - 2 tab PO Q4H PRN #25 tablet 12/20/19 [Rx] Docusate Sodium [Colace] 100 mg PO Q12H PRN cap 12/20/19 [Rx] Vit with Ca/FA/Iron [ Plus Iron] 1 each PO DAILY tablet 08/02/20 [Rx] Patient Handouts: Mastitis, Breast Pumping Tips, and Self-Care, and Returning to Work, Care After Delivery, Breast Engorgement Referrals: Mauro Briones MD [Primary Care Provider] - (2-3 weeks for check ) - Discharge Summary/Plan Comment DC Time >30 min.: No - Patient Data Vitals - Most Recent: Last Vital Signs Temp 36.6 C 12/20/19 05:17 Pulse 71 12/20/19 05:17 Resp 14 12/20/19 05:17 BP 115/83 12/20/19 05:17 Pulse Ox 95 12/20/19 05:17 Weight - Most Recent: 78.154 kg Med Orders - Current: Current Medications Diphenhydramine HCl (Benadryl) 25 mg IVPUSH Q6H PRN PRN Reason: Pruritis Diphenhydramine HCl (Benadryl) 25 mg IVPUSH Q6H PRN PRN Reason: Itching or Nausea Docusate Sodium (Colace) 100 mg PO Q12H PRN PRN Reason: Constipation Last Admin: 12/19/19 17:52 Dose: 100 mg Documented by: Ephedrine Sulfate (Ephedrine Sulfate) 5 mg IVPUSH SEECOMMENT PRN PRN Reason: Other Fentanyl (Sublimaze) 50 mcg IVPUSH Q5M PRN PRN Reason: Pain Ibuprofen (Motrin) 800 mg PO Q8H [facility] Last Admin: 12/19/19 23:45 Dose: 800 mg Documented by: Naloxone HCl (Narcan) 0.1 mg IVPUSH SEECOMMENT PRN PRN Reason: Respiratory Depression Ondansetron HCl (Zofran) 4 mg IVPUSH ONETIME PRN PRN Reason: Nausea/Vomiting Ondansetron HCl (Zofran) 4 mg IV Q4H PRN PRN Reason: Nausea/Vomiting Oxycodone/Acetaminophen (Percocet 325-5 Mg) 1 tab PO Q4H PRN PRN Reason: Pain (moderate 4-6) Oxycodone/Acetaminophen (Percocet 325-5 Mg) 2 tab PO Q4H PRN PRN Reason: Pain (severe 7-10) Prenat Multivit/Back Shoe Worker/Iron/Folic Ac ( Plus Iron) 1 each PO DAILY [facility] Last Admin: 12/19/19 15:10 Dose: Not Given Documented by: Simethicone (Simethicone) 80 mg PO 0900,1300,1800,2200 [facility] Last Admin: 12/20/19 06:59 Dose: Not Given Documented by: Discontinued Medications Acetaminophen (Tylenol) 650 mg PO Q4H PRN PRN Reason: Pain (Mild 1-3) and fever Bupivacaine HCl (Sensorcaine-Mpf 0.5%) Confirm Administered Dose 0 ml .ROUTE .STK-MED ONE Stop: 12/18/19 06:26 Bupivacaine HCl (Marcaine 0.5%) Confirm Administered Dose 30 ml .ROUTE .STK-MED ONE Stop: 12/18/19 06:27 Last Admin: 12/18/19 10:30 Dose: 20 ml Documented by: Calcium Carbonate/Glycine (Tums) 1,000 mg PO Q2H PRN PRN Reason: Indigestion Cefazolin Sodium (Ancef) Confirm Administered Dose 2 gm .ROUTE .STK-MED ONE Stop: 12/18/19 07:48 Citric Acid/Sodium Citrate (Bicitra Solution) 30 ml PO ONETIME ONE Stop: 12/18/19 06:26 Last Admin: 12/18/19 06:32 Dose: 30 ml Documented by: Citric Acid/Sodium Citrate (Bicitra Solution) Confirm Administered Dose 30 ml .ROUTE .STK-MED ONE Stop: 12/18/19 06:29 Last Admin: 12/18/19 06:32 Dose: Not Given Documented by: Diphenhydramine HCl (Benadryl) 25 mg IVPUSH Q6H PRN PRN Reason: Itching Last Admin: 12/17/19 22:55 Dose: 25 mg Documented by: Ephedrine Sulfate (Ephedrine Sulfate) 5 mg IVPUSH ASDIRECTED PRN PRN Reason: Hypotension Fentanyl (Sublimaze) 100 mcg EPIDUR Q3H PRN PRN Reason: Pain Last Admin: 12/17/19 20:44 Dose: 100 mcg Documented by: Fentanyl/Bupivacaine HCl (Fentanyl/Bupivacaine/Ns 2 Mcg-0.125% 100 Ml) 100 ml EPIDUR ASDIRECTED [facility] Last Admin: 12/17/19 20:45 Dose: 100 ml Documented by: Oxytocin/Lactated Ringer's (Pitocin In Lr 10 Units/1,000 Ml) 10 unit in 1,000 mls @ 500 mls/hr IV .CONTINUOUS JUAN J Oxytocin/Lactated Ringer's (Pitocin In Lr 10 Units/1,000 Ml) 10 unit in 1,000 mls @ 12 mls/hr IV TITRATE JUAN J; Protocol Last Titration: 12/17/19 12:00 Dose: 20 munits/min, 120 mls/hr Documented by: Lactated Ringer's (Ringers, Lactated) 1,000 mls @ 100 mls/hr IV ASDIRECTED JUAN J Last Admin: 12/18/19 06:35 Dose: 100 mls/hr Documented by: Phenylephrine HCl 1 mg/ Sodium (Chloride) 10.1 mls @ 1 mls/sec IV TITRATE JUAN J; Protocol Oxytocin/Lactated Ringer's (Pitocin In Lr 20 Units/1,000 Ml) 20 unit in 1,000 mls @ 66 mls/hr IV TITRATE JUAN J; Protocol Last Admin: 12/18/19 02:20 Dose: 66 mls/hr Documented by: Azithromycin 500 mg/ Sodium (Chloride) 250 mls @ 250 mls/hr IV ONETIME ONE Stop: 12/18/19 08:26 Last Admin: 12/18/19 08:12 Dose: Not Given Documented by: Lactated Ringer's (Ringers, Lactated) Confirm Administered Dose 1,000 mls @ as directed .ROUTE .STK-MED ONE Stop: 12/18/19 07:52 Dextrose/Lactated Ringer's (Dextrose 5%-Lactated Ringers) 1,000 mls @ 125 mls/hr IV ASDIRECTED JUAN J Stop: 12/18/19 18:16 Last Infusion: 12/18/19 19:30 Dose: Infused Documented by: Ibuprofen (Motrin) 800 mg PO Q8H [facility] Last Admin: 12/19/19 02:04 Dose: Not Given Documented by: Ibuprofen (Motrin) 800 mg PO Q8H [facility] Last Admin: 12/19/19 05:00 Dose: 800 mg Documented by: Ketorolac Tromethamine (Toradol) Confirm Administered Dose 30 mg .ROUTE .STK-MED ONE Stop: 12/18/19 08:26 Meperidine HCl (Meperidine) Confirm Administered Dose 50 mg .ROUTE .STK-MED ONE Stop: 12/18/19 08:10 Metoclopramide HCl (Reglan) 10 mg IVPUSH ONETIME ONE Stop: 12/18/19 06:26 Last Admin: 12/18/19 06:32 Dose: 10 mg Documented by: Metoclopramide HCl (Reglan) Confirm Administered Dose 10 mg .ROUTE .STK-MED ONE Stop: 12/18/19 06:29 Last Admin: 12/18/19 06:33 Dose: Not Given Documented by: Miscellaneous Medication (Phenylephrine 1 Mg/10 Ml-Ns) Confirm Administered Dose 1 mg IV .STK-MED ONE Stop: 12/18/19 07:58 Misoprostol (Cytotec) 25 mcg VAG ONETIME ONE Stop: 12/16/19 19:43 Last Admin: 12/16/19 19:53 Dose: 25 mcg Documented by: Misoprostol (Cytotec) 50 mcg VAG Q4HR PRN PRN Reason: Other Last Admin: 12/17/19 04:10 Dose: 50 mcg Documented by: Morphine Sulfate (Duramorph Pf) Confirm Administered Dose 1 mg .ROUTE .STK-MED ONE Stop: 12/18/19 08:00 Nalbuphine HCl (Nubain) 10 mg IVPUSH Q2H PRN PRN Reason: Pain Last Admin: 12/17/19 15:02 Dose: 10 mg Documented by: Ondansetron HCl (Zofran) 4 mg IVPUSH Q4H PRN PRN Reason: Nausea/Vomiting Ondansetron HCl (Zofran) 4 mg IVPUSH ONETIME PRN PRN Reason: Nausea/Vomiting Oxytocin (Pitocin) Confirm Administered Dose 20 unit .ROUTE .STK-MED ONE Stop: 12/18/19 07:59 Sodium Chloride (Saline Flush) 10 ml FLUSH ASDIRECTED PRN PRN Reason: Keep Vein Open
[2019-12-20] MEDS: Ibuprofen 800 MG Tab PO SCH (07:46)
[2019-12-20] MEDS: Prenatal Multivitamin with Calcium/Folic Acid/Iron Tab PO SCH (10:24)
== END 2019-12-20 15:00 | disposition home or self-care (01) | DRG 540 ==
LOC: JD.OB 08:00 → EDSTATUS 12-17 18:42 → OBSVTOIN 12-18 08:00 → JD.OB 12-18 08:01
PROVIDERS: ADMIT Obstetrics & Gynecology; ATTEND Obstetrics & Gynecology
PROC: 10D00Z1 Extraction of Products of Conception, Low, Open Approach (ICD-10-PCS; principal; 2019-12-18)
PROC: 10907ZC Drainage of Amniotic Fluid, Therapeutic from Products of Conception, Via Natural or Artificial Opening (ICD-10-PCS; 2019-12-18)
PROC: 3E0P7VZ Introduction of Hormone into Female Reproductive, Via Natural or Artificial Opening (ICD-10-PCS; 2019-12-18)
PROC: 3E033VJ Introduction of Other Hormone into Peripheral Vein, Percutaneous Approach (ICD-10-PCS; 2019-12-18)
PROC: 0U7C7ZZ Dilation of Cervix, Via Natural or Artificial Opening (ICD-10-PCS; 2019-12-18)
PROC: 3E0R3BZ Introduction of Anesthetic Agent into Spinal Canal, Percutaneous Approach (ICD-10-PCS; 2019-12-18)
PROC: 00HU33Z Insertion of Infusion Device into Spinal Canal, Percutaneous Approach (ICD-10-PCS; 2019-12-18)
DX: O62.1 Secondary uterine inertia (principal); O33.9 Maternal care for disproportion, unspecified; Z3A.40 40 weeks gestation of pregnancy; Z37.0 Single live birth; Z11.59 Encounter for screening for other viral diseases
CPT/HCPCS: 01967; 01968; 36415; 51702; 59025; 85025; 86592; 86850; 86900; 86901; 94762; A9270-GY; J0690; J1200; J1885; J2001; J2175; J2274; J2300; J2370; J2590; J2765; J3010; J3490; J7120; J7121; U0002

== ENCOUNTER 2022-10-31 05:27 | Inpatient (IN) | payer BC ==
[~2022-10-31 05:27] MED LIST: Citric Acid/Sodium Citrate Solution 30 ML Cup PO ONE; Metoclopramide 10 MG/2 ML SDV IVPUSH ONE; Oxytocin/Lactated Ringers 10 UNIT/1,000 ML BAG IV SCH; Sodium Chloride 0.9% 10 ML Syringe FLUSH PRN; ceFAZolin 2 GM in Sodium Chloride 0.9% 50 ML IV ONE
[2022-10-31] MEDS: Lactated Ringers 1,000 ML IV SCH ×2 (05:45→06:49)
[2022-10-31 06:26] LABS: BASOPHILS ABSOLUTE AUTO 0.02 K/mm3 (0.01-0.08); BASOPHILS PERCENT AUTO 0.3 % (0.1-1.2); EOSINOPHILS ABSOLUTE AUTO 0.05 K/mm3 (0.04-0.36); EOSINOPHILS PERCENT AUTO 0.7 (0.7-5.8); HEMATOCRIT 35.8 % (34.1-44.9); HEMOGLOBIN 12.2 gm/dl (11.2-15.7); IMMATURE GRAN ABSOLUTE AUTO 0.04 K/mm3 (0.00-0.10); IMMATURE GRAN PERCENT AUTO 0.5 % (<=1.0); MEAN CORPUSCULAR HEMOGLOBIN 31.4 pg (25.6-32.2); MEAN CORPUSCULAR HGB CONC 34.1 g/dl (32.2-35.5); MEAN CORPUSCULAR VOLUME 92.3 fl (79.4-94.8); MEAN PLATELET VOLUME 10.6 fl (9.4-12.3); MONOCYTES ABSOLUTE AUTO 0.68 K/mm3 (0.24-0.36); MONOCYTES PERCENT AUTO 9.1 % (4.7-12.5); NEUTROPHILS ABSOLUTE AUTO 5.82 K/mm3 (1.56-6.13); NEUTROPHILS PERCENT AUTO 77.4 % (34.0-71.1); PLATELET COUNT,PLT 167 K/mm3 (182-369); RED BLOOD CELL COUNT 3.88 M/mm3 (3.98-5.22); WHITE BLOOD CELL COUNT,WBC 7.51 K/mm3 (3.98-10.04)
[2022-10-31] MEDS ORDERED: Metoclopramide 10 MG/2 ML SDV ONE (06:43)
[2022-10-31] MEDS ORDERED: Citric Acid/Sodium Citrate Solution 30 ML Cup ONE (06:44)
[2022-10-31] MEDS ORDERED: Metoclopramide 10 MG/2 ML SDV IVPUSH ONE (06:45)
[2022-10-31] MEDS ORDERED: Citric Acid/Sodium Citrate Solution 30 ML Cup PO ONE (06:45)
[2022-10-31] MEDS ORDERED: Ondansetron 4 MG/2 ML SDV ONE (06:52)
[2022-10-31] MEDS ORDERED: Ketorolac 30 MG/ML SDV ONE (06:52)
[2022-10-31] MEDS ORDERED: Lactated Ringers 2,000 ML ONE (06:52)
[2022-10-31] MEDS ORDERED: Oxytocin 10 Units/1 ML SDV ONE (06:52)
[2022-10-31] MEDS ORDERED: Morphine PF 1 MG/ML Amp ONE ×2 (06:53)
[2022-10-31] MEDS ORDERED: ceFAZolin 2 GM Vial ONE (06:56)
[2022-10-31] MEDS ORDERED: fentaNYL 100 MCG/2 ML SDV IVPUSH PRN (07:11)
[2022-10-31] MEDS ORDERED: Ondansetron 4 MG/2 ML SDV IVPUSH PRN (07:11)
[2022-10-31] MEDS ORDERED: diphenhydrAMINE 50 MG/ML SDV IVPUSH PRN ×2 (07:11→09:05)
[2022-10-31] MEDS ORDERED: Meperidine 50 MG/ML Vial IVPUSH PRN (07:11)
[2022-10-31] MEDS ORDERED: Dexamethasone 4 MG/ML SDV ONE (07:53)
[2022-10-31] MEDS ORDERED: Phenylephrine 1% 10 MG/ML SDV ONE (08:00)
[2022-10-31] MEDS ORDERED: Sodium Chloride 0.9% 10 ML Syringe FLUSH SCH (09:00)
[2022-10-31] MEDS ORDERED: Dextrose 5%-Lactated Ringers 1,000 ML IV SCH (09:05)
[2022-10-31] MEDS ORDERED: Docusate Sodium 100 MG Cap PO PRN (09:05)
[2022-10-31] MEDS ORDERED: ePHEDrine 50 MG/ML SDV IVPUSH PRN (09:05)
[2022-10-31] MEDS ORDERED: Ondansetron 4 MG/2 ML SDV IV PRN (09:05)
[2022-10-31] MEDS ORDERED: Acetaminophen/oxyCODONE 325-5 MG Tab PO PRN (09:05)
[2022-10-31] MEDS ORDERED: Naloxone 0.4 MG/ML SDV IVPUSH PRN (09:05)
[2022-10-31] MEDS: Ketorolac 30 MG/ML SDV IVPUSH SCH ×2 (15:21→21:19)
[2022-11-01] MEDS: Ketorolac 30 MG/ML SDV IVPUSH SCH (03:44)
[2022-11-01 06:51] LABS: HEMATOCRIT 32.4 % (34.1-44.9); HEMOGLOBIN 10.9 gm/dl (11.2-15.7); MEAN CORPUSCULAR HEMOGLOBIN 31.2 pg (25.6-32.2); MEAN CORPUSCULAR HGB CONC 33.6 g/dl (32.2-35.5); MEAN CORPUSCULAR VOLUME 92.8 fl (79.4-94.8); MEAN PLATELET VOLUME 10.5 fl (9.4-12.3); PLATELET COUNT,PLT 176 K/mm3 (182-369); RED BLOOD CELL COUNT 3.49 M/mm3 (3.98-5.22); WHITE BLOOD CELL COUNT,WBC 9.93 K/mm3 (3.98-10.04)
[2022-11-01] MEDS ORDERED: Ibuprofen 600 MG Tab PO PRN (08:30)
[2022-11-01] MEDS: Acetaminophen/oxyCODONE 325-5 MG Tab PO PRN ×3 (13:07→22:24)
== END 2022-11-02 11:40 | disposition home or self-care (01) | DRG 540 ==
LOC: JD.OB 05:27
PROVIDERS: ADMIT Obstetrics & Gynecology; ATTEND Obstetrics & Gynecology
PROC: 10D00Z1 Extraction of Products of Conception, Low, Open Approach (ICD-10-PCS; principal; 2022-10-31)
DX: O34.211 Maternal care for low transverse scar from previous cesarean delivery (principal); Z37.0 Single live birth; O99.62 Diseases of the digestive system complicating childbirth; K21.9 Gastro-esophageal reflux disease without esophagitis; Z3A.39 39 weeks gestation of pregnancy
CPT/HCPCS: 01961; 01967; 36415; 59025; 85025; 85027; 86592; 86850; 86870; 86900; 86901; 94762; A9270-GY; J0690; J1100; J1200; J1885; J2274; J2370; J2405; J2590; J2765; J7120; J7121

== ENCOUNTER 2023-01-19 19:53 | Emergency (ER) | payer BC ==
[2023-01-19 20:36] LABS: BASOPHILS PERCENT AUTO 0.2 % (0.0-1.0); EOSINOPHILS ABSOLUTE AUTO 0.2 K/mm3 (0.0-0.4); EOSINOPHILS PERCENT AUTO 5.4 % (0.0-6.0); IMMATURE GRAN ABSOLUTE AUTO 0.02 K/mm3 (0.00-0.05); IMMATURE GRAN PERCENT AUTO 0.5 % (0.0-0.4); LYMPHOCYTES ABSOLUTE AUTO 0.4 K/mm3 (1.0-4.8); LYMPHOCYTES PERCENT AUTO 10.8 % (24.0-44.0); MEAN CORPUSCULAR HEMOGLOBIN 31.3 pg (28.0-32.0); MEAN CORPUSCULAR HGB CONC 35.9 g/dl (32.0-36.0); MEAN CORPUSCULAR VOLUME 87.1 fl (83.0-99.0); MEAN PLATELET VOLUME 10.2 fl (9.4-12.3); MONOCYTES ABSOLUTE AUTO 0.2 K/mm3 (0.0-0.8); MONOCYTES PERCENT AUTO 4.7 % (0.0-8.0); NEUTROPHILS ABSOLUTE AUTO 3.2 K/mm3 (1.8-7.7); NEUTROPHILS PERCENT AUTO 78.4 % (41.0-71.0); PLATELET COUNT,PLT 106 K/mm3 (150-400); RED BLOOD CELL COUNT 4.48 M/mm3 (4.10-5.30); WHITE BLOOD CELL COUNT,WBC 4.07 K/mm3 (3.9-11.3)
[2023-01-19 21:12] LABS: A/G RATIO 0.9 (1-2); ALBUMIN 3.3 g/dl (3.4-5.0); ANION GAP 10.9 (5-15); BUN/CREATININE RATIO 19.1 (14-18); C-REACTIVE PROTEIN 11.5 mg/dL (<1.0); CALCIUM 8.5 mg/dL (8.5-10.1); CREATININE 1.1 mg/dL (0.55-1.02); EST CRCL DRUG DOSING (CG) 64.84 mL/min; POTASSIUM,K 3.9 mEq/L (3.5-5.1); PROTEIN TOTAL,TP 6.8 g/dl (6.4-8.2)
[2023-01-19 21:16] LABS: APPEARANCE,URINE SLT CLOUDY (Clear); BILIRUBIN,URINE NEGATIVE (Negative); COLOR,URINE DARK YELLOW (Yellow); GLUCOSE,URINE NEGATIVE (Negative); KETONES,URINE TRACE (Negative); LEUKOCYTE ESTERASE,URINE 1+ (Negative); NITRITE,URINE NEGATIVE (Negative); OCCULT BLOOD,URINE 2+ (Negative); PROTEIN,URINE 2+ (Negative); UROBILINOGEN,URINE 0.2 (0.2-1.0)
[2023-01-19 21:36] LABS: RBC,URINE 20-30 /hpf (0-5); SQUAMOUS EPITHELIAL CELLS,UR 0-5 /hpf (0-5); WBC,URINE 30-40 /hpf (0-5)
[2023-01-19 21:37] LABS: BACTERIA,URINE MODERATE /hpf (FEW); MUCUS,URINE MODERATE /hpf (FEW)
[2023-01-19] MEDS ORDERED: Nitrofurantoin Monohydrate/Macrocrystalline 100 MG Cap PO ONE (22:29)
== END 2023-01-19 22:56 | disposition home or self-care (01) ==
LOC: JD.ED 19:53
DX: N39.0 Urinary tract infection, site not specified (principal); Z20.822 Contact with and (suspected) exposure to COVID-19
CPT/HCPCS: 36415; 80053; 81001; 85025; 86140; 87040; 87086; 87635; 87651; 99284; A9270; 99283; U0002